=== PATIENT | male | born 1975 | race Caucasian/White ===

== ENCOUNTER 2019-10-11 16:41 | Emergency (ER) | payer SELFPAY ==
[2019-10-11] MEDS ORDERED: Ketamine 500 mg/10 ML MDV ONE (16:54)
[2019-10-11] MEDS ORDERED: propofoL 50 ML ONE (16:57)
[2019-10-11] MEDS ORDERED: Sodium Chloride 0.9% 1,000 ML IV ONE (16:58)
[2019-10-11] MEDS ORDERED: propofoL 100 ML ONE (17:15)
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
[2019-10-11 17:32] LABS: BLOOD UREA NITROGEN,BUN 13 mg/dL (7.0-18.0); CARBON DIOXIDE,CO2 15.1 mmol/L (21.0-32.0); CHLORIDE,CL 103 mmol/L (98-107); GLUCOSE RANDOM 110 mg/dL (74-106); POTASSIUM,K 3.7 mmol/L (3.5-5.1); SODIUM,NA 139 mmol/L (136-148)
--- NOTE | 2019-10-11 17:42 | CR ---
Chest: Frontal view of the chest was obtained in supine projection utilizing portable technique. Comparison: No prior chest imaging is available. Tip of endotracheal tube lies slightly above the level of the superior clavicles. Endotracheal tube is 6.5 cm above the romeo. Metallic densities are seen overlying the right upper chest or within the right chest. Heart size and mediastinum are normal. Lungs are clear. No definite acute bony abnormality is seen. There is a density overlying the right scapula below the glenoid most likely artifact. Impression: 1. Tip of endotracheal tube slightly above the clavicles as noted above. 2. Metallic densities within or overlying the right upper chest. 3. Density overlapping the right scapula most likely artifact. 4. No pneumothorax or other acute abnormality is appreciated. Diagnostic code #3 This report was dictated in MDT
[2019-10-11] MEDS ORDERED: Phenylephrine 1% 10 MG/ML SDV ONE (17:43)
[2019-10-11] MEDS ORDERED: Diphtheria,Pertussis(Acell),Tetanus Vaccine 0.5 ML Syringe ONE (17:50)
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
== END 2019-10-11 17:54 ==
LOC: MW.ED 16:41
DX: S21.131A Puncture wound without foreign body of right front wall of thorax without penetration into thoracic cavity, initial encounter (principal); W34.00XA Accidental discharge from unspecified firearms or gun, initial encounter
CPT/HCPCS: 31500; 36415; 43752; 51702; 71045; 71045-26; 80053; 80305-QW; 80307; 81001; 85025; 86850; 86900; 86901; 93005; 96360; 96372; 99285-25; 99291

== ENCOUNTER 2019-10-13 10:25 | Emergency (ER) | payer SELFPAY ==
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
[2019-10-13] MEDS ORDERED: Bacitracin Oint 1 GM U/D Packet TOP ONE (10:48)
== END 2019-10-13 11:19 | disposition home or self-care (01) ==
LOC: MW.ED 10:25
DX: S41.031D Puncture wound without foreign body of right shoulder, subsequent encounter (principal); W33.01XD Accidental discharge of shotgun, subsequent encounter
CPT/HCPCS: 99282; 99284

== ENCOUNTER 2019-10-15 06:40 | Emergency (ER) | payer SELFPAY ==
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
== END 2019-10-15 07:14 | disposition left against medical advice (07) ==
LOC: MW.ED 06:40
DX: S41.001D Unspecified open wound of right shoulder, subsequent encounter (principal); F11.10 Opioid abuse, uncomplicated; F91.9 Conduct disorder, unspecified; F10.10 Alcohol abuse, uncomplicated; W34.00XD Accidental discharge from unspecified firearms or gun, subsequent encounter
CPT/HCPCS: 99282

== ENCOUNTER 2019-12-20 16:48 | Emergency (ER) | payer SELFPAY ==
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
--- NOTE | 2019-12-21 10:31 | CR ---
EXAM DATE: 12/20/19 PATIENT'S AGE: 44 Patient: JERROD CHACON Facility: [facility], [facility] Site . Site : 1975 Study: XRay-Extremity Left tib/fib-12/20/2019 6:18:23 PM Ordering Physician: waylon pablo Final Report: INDICATION: crish injury with rock TECHNIQUE Left tibia/fibula radiographs, 2 views; left foot radiographs, 3 views. INDICATION Trauma, crush injury. COMPARISON None available. FINDINGS Left tibia/fibula: No dislocation or displaced fracture. The left knee and ankle articulations appear grossly intact. Soft tissues unremarkable. Left foot: Tiny densities adjacent to the medial/dorsal aspect of the 1st tarsometatarsal joint. No dislocation or displaced fracture. Joint spaces are maintained. Nonspecific soft tissue prominence about the dorsal aspect of the foot. No radiopaque foreign body or soft tissue gas. IMPRESSION 1. Tiny densities along the medial/dorsal aspect of the 1st TMT joint are nonspecific, but could reflect avulsion fracture fragments if point tenderness at this location. 2. Imaged left lower extremity otherwise without dislocation or displaced fracture. Dictated by: Espinoza Navas MD @ 12/20/2019 18:59:45 Signed by: Espinoza Navas MD @12/20/2019 6:59:45 PM (Electronic Signature) Report Signed by Proxy. [facility] SYSTEMSharee
--- NOTE | 2019-12-21 10:32 | CR ---
EXAM DATE: 12/20/19 PATIENT'S AGE: 44 Patient: JERROD CHACON Facility: [facility], [facility] Site . Site : 1975 Study: XRay-Extremity Left 3 view foot-12/20/2019 6:19:46 PM Ordering Physician: waylon pablo Final Report: TECHNIQUE: Left tibia/fibula radiographs, 2 views; left foot radiographs, 3 views. INDICATION: Trauma, crush injury. COMPARISON: None available. FINDINGS: Left tibia/fibula: No dislocation or displaced fracture. The left knee and ankle articulations appear grossly intact. Soft tissues unremarkable. Left foot: Tiny densities adjacent to the medial/dorsal aspect of the 1st tarsometatarsal joint. No dislocation or displaced fracture. Joint spaces are maintained. Nonspecific soft tissue prominence about the dorsal aspect of the foot. No radiopaque foreign body or soft tissue gas. IMPRESSION: 1. Tiny densities along the medial/dorsal aspect of the 1st TMT joint are nonspecific, but could reflect avulsion fracture fragments if point tenderness at this location. 2. Imaged left lower extremity otherwise without dislocation or displaced fracture. Dictated by Espinoza Navas MD @ 12/20/2019 6:58:34 PM Dictated by: Espinoza Navas MD @ 12/20/2019 18:58:41 Signed by: Espinoza Navas MD @12/20/2019 6:58:41 PM (Electronic Signature) Report Signed by Proxy. [facility]
== END 2019-12-20 19:35 | disposition home or self-care (01) ==
LOC: MW.ED 16:48
DX: S92.302A Fracture of unspecified metatarsal bone(s), left foot, initial encounter for closed fracture (principal); W22.8XXA Striking against or struck by other objects, initial encounter
CPT/HCPCS: 73590-26-LT; 73590-LT; 73630-26-LT; 73630-LT; 99283